=== PATIENT | male | born 1945 | race Caucasian/White ===

== ENCOUNTER 2017-06-01 19:11 | Observation (INO) | payer MEDICARE, OTHER ==
[2017-06-01] MEDS ORDERED: Albuterol/Ipratropium 3.0-0.5 MG/3 ML Neb Soln ONE (19:20)
[2017-06-01] MEDS ORDERED: Sodium Chloride 0.9% 10 ML Syringe FLUSH PRN (19:20)
[2017-06-01] MEDS ORDERED: Sodium Chloride 0.9% 2.5 ML Syringe FLUSH PRN (19:20)
--- NOTE | 2017-06-01 19:29 | EDM.PDOC ---
ED HPI GENERAL MEDICAL PROBLEM - General Chief Complaint: Respiratory Problem Stated Complaint: COPD Time Seen by Provider: 06/01/17 19:20 Source of Information: Reports: Patient, EMS, RN - History of Present Illness INITIAL COMMENTS - FREE TEXT/NARRATIVE: He presented by EMS with recent cough and dyspnea that acutely worsened today. He has a prior history of COPD and has been intubated. He has had a tracheostomy in the past - Related Data Allergies Allergy/AdvReac Type Severity Reaction Status Date / Time lorazepam [From Ativan] Allergy Other Verified 06/01/17 19:34 sulfur dioxide Allergy Hives Verified 06/01/17 19:34 Home Meds: Home Meds Albuterol [Ventolin HFA] 2 puff INH ASDIRECTED PRN 06/01/17 [History] Clotrimazole [Clotrimazole 1%] 0 mg TOP ASDIRECTED PRN 06/01/17 [History] DULoxetine [Cymbalta] 60 mg PO DAILY 06/01/17 [History] Diltiazem [Cardizem CD] 240 mg PO DAILY 06/01/17 [History] Furosemide 20 mg PO DAILY 06/01/17 [History] Gabapentin [Neurontin] 800 mg PO BID 06/01/17 [History] Hydrocodone/Acetaminophen [Hydrocodon-Acetaminophn 10-325] 10 - 325 mg PO ASDIRECTED PRN 06/01/17 [History] Metoprolol Succinate [Toprol XL] 25 mg PO DAILY 06/01/17 [History] Omeprazole 20 mg PO DAILY 06/01/17 [History] Rivaroxaban [Xarelto] 20 mg PO DAILY 06/01/17 [History] Umeclidinium Brm/Vilanterol Tr [Anoro Ellipta 62.5-25 MCG] 1 puff INH DAILY [History] Past Medical History Cardiovascular History: Reports: Afib. Denies: Heart Failure, Heart Murmur, Hypertension, HI Respiratory History: Reports: COPD Gastrointestinal History: Denies: Cirrhosis Genitourinary History: Denies: Chronic Renal Insuffiency Neurological History: Denies: CVA Endocrine/Metabolic History: Denies: Diabetes, Type I, Diabetes, Type II Hematologic History: Reports: Anticoagulation Therapy Immunologic History: Denies: Solid Organ Transplant Oncologic (Cancer) History: Reports: None Social & Family History - Tobacco Use Smoking Status *Q: Former Smoker Tobacco Use Comment: He quit smoking about six years ago - Alcohol Use Alcohol Use Comment: he had two drinks today . He states that he does not drink everyday but that he drinks socially. ED ROS GENERAL - Review of Systems Review Of Systems: See Below Constitutional: Denies: Fever Respiratory: Reports: Shortness of Breath, Wheezing, Cough Cardiovascular: Denies: Chest Pain GI/Abdominal: Denies: Abdominal Pain, Black Stool, Bloody Stool, Hematemesis, Hematochezia : Denies: Dysuria, Hematuria ED EXAM, GENERAL - Physical Exam Exam: See Below General Appearance: Alert, Mild Distress Throat/Mouth: Other (prior tacheostomy scar noted) Respiratory/Chest: Decreased Breath Sounds, Accessory Muscle Use, Retractions Cardiovascular: Regular Rate, Rhythm GI/Abdominal: Soft, Non-Tender, Other (prior surgical scars ; large area of ventral hernia noted) Rectal (Males) Exam: Deferred Extremities: No: Pedal Edema Neurological: Alert Course - Vital Signs Last Recorded V/S: Last Vital Signs Temp 97.0 F 06/01/17 20:00 Pulse 61 06/01/17 20:00 Resp 20 06/01/17 20:00 BP 112/70 06/01/17 20:00 Pulse Ox 97 06/01/17 20:00 - Orders/Labs/Meds Orders: Active Orders 24 hr Category Date Time Status RT Aerosol Therapy [RC] ASDIRECTED Care 06/01/17 19:21 Active Chest 1V Frontal [CR] Stat Exams 06/01/17 19:20 Taken Albuterol/Ipratropium [DuoNeb 3.0-0.5 MG/3 ML] Med 06/01/17 19:30 Active 3 ml NEB Q1H Azithromycin [Zithromax] 500 mg Med 06/01/17 19:30 Active Sodium Chloride 0.9% [Normal Saline] 250 ml IV Q24H Piperacillin/Tazobactam [Piperacil-Tazobact] 3.375 gm Med 06/01/17 19:30 Active Sodium Chloride 0.9% [Normal Saline] 50 ml IV Q6H Sodium Chloride 0.9% [Saline Flush] Med 06/01/17 19:20 Active 10 ml FLUSH ASDIRECTED PRN Sodium Chloride 0.9% [Saline Flush] Med 06/01/17 19:20 Active 2.5 ml FLUSH ASDIRECTED PRN Vancomycin Pharmacy to Dose [Pharmacy to Dose - Med 06/01/17 19:30 Pending Vancomycin] 1 dose .XX ASDIRECTED Vancomycin [Vancocin] 1 gm Med 06/01/17 21:00 Active Sodium Chloride 0.9% [Normal Saline] 250 ml IV Q12H methylPREDNISolone Sod Succ [Solu-MEDROL] Med 06/01/17 19:30 Active 125 mg IVPUSH Q6H Saline Lock Insert [OM.PC] Urgent Oth 06/01/17 19:20 Ordered Medication Orders Albuterol/Ipratropium (Duoneb 3.0-0.5 Mg/3 Ml) 3 ml NEB Q1H [facility] Azithromycin 500 mg/ Sodium (Chloride) 250 mls @ 250 mls/hr IV Q24H [facility] Last Admin: 06/01/17 20:11 Dose: 250 mls/hr Piperacillin Sod/Tazobactam (Sod 3.375 gm/ Sodium Chloride) 50 mls @ 100 mls/ hr IV Q6H [facility] Last Admin: 06/01/17 19:39 Dose: 100 mls/hr Vancomycin HCl 1 gm/ Sodium (Chloride) 250 mls @ 166 mls/hr IV Q12H [facility] Methylprednisolone Sodium Succinate (Solu-Medrol) 125 mg IVPUSH Q6H [facility] Last Admin: 06/01/17 19:38 Dose: 125 mg Sodium Chloride (Saline Flush) 10 ml FLUSH ASDIRECTED PRN PRN Reason: Keep Vein Open Sodium Chloride (Saline Flush) 2.5 ml FLUSH ASDIRECTED PRN PRN Reason: Keep Vein Open Vancomycin HCl (Pharmacy To Dose - Vancomycin) 1 dose .XX ASDIRECTED [facility] Labs: Laboratory Tests 06/01/17 06/01/17 06/01/17 Range/Units 19:25 19:25 20:23 WBC 9.75 (4.0-11.0) K/uL RBC 4.71 (4.50-5.90) M/uL Hgb 13.6 (13.0-17.0) g/dL Hct 41.4 (38.0-50.0) % MCV 87.9 (80.0-98.0) fL MCH 28.9 (27.0-32.0) pg MCHC 32.9 (31.0-37.0) g/dL RDW Std Deviation 44.3 (28.0-62.0) fl RDW Coeff of Sally 14 (11.0-15.0) % Plt Count 342 (150-400) K/uL MPV 9.80 (7.40-12.00) fL Neut % (Auto) 60.4 (48.0-80.0) % Lymph % (Auto) 29.6 (16.0-40.0) % Butts % (Auto) 8.0 (0.0-15.0) % Eos % (Auto) 1.6 (0.0-7.0) % Baso % (Auto) 0.4 (0.0-1.5) % Neut # (Auto) 5.9 H (1.4-5.7) K/uL Lymph # (Auto) 2.9 H (0.6-2.4) K/uL Butts # (Auto) 0.8 (0.0-0.8) K/uL Eos # (Auto) 0.2 (0.0-0.7) K/uL Baso # (Auto) 0.0 (0.0-0.1) K/uL Nucleated RBC % 0.0 /100WBC Nucleated RBCs # 0 K/uL ABG pH 7.344 L (7.35-7.45) ABG pCO2 46 H (35-45) mmHG ABG pO2 103 H (75-100) mmHG ABG HCO3 25 (22-26) mEq/L ABG Total CO2 23.1 ABG Base Excess -0.9 (-2.0-2.0) Sodium 138 (136-146) mmol/L Potassium 4.5 (3.5-5.1) mmol/L Chloride 102 (98-110) mmol/L Carbon Dioxide 19 L (21-31) mmol/L BUN 28 H (6.0-23.0) mg/dL Creatinine 1.1 (0.6-1.5) mg/dL Est Cr Clr Drug Dosing 65.44 mL/min Estimated GFR (MDRD) > 60.0 ml/min Glucose 128 H (60-110) mg/dL Calcium 9.8 (8.8-10.8) mg/dL Magnesium 1.7 (1.5-2.3) mEq/L Total Bilirubin 0.2 (0.1-1.5) mg/dL AST 18 (5-40) IU/L ALT 24 (8-54) IU/L Alkaline Phosphatase 117 (40-150) Total Protein 7.5 (6.0-8.0) g/dL Albumin 3.9 (3.4-4.8) g/dL Globulin 3.6 H (2.0-3.5) g/dL Albumin/Globulin Ratio 1.1 L (1.3-2.8) Meds: Medications Generic Name Dose Route Start Last Admin Trade Name Pardeep PRN Reason Stop Dose Admin Albuterol/Ipratropium 3 ml 06/01/17 19:30 Duoneb 3.0-0.5 Mg/3 Ml NEB Q1H [facility] Azithromycin 500 mg/ Sodium 250 mls @ 250 mls/hr 06/01/17 19:30 06/01/17 20: 11 Chloride IV 250 mls/hr Q24H [facility] Administration Piperacillin Sod/Tazobactam 50 mls @ 100 mls/hr 06/01/17 19:30 06/01/17 19:39 Sod 3.375 gm/ Sodium Chloride IV 100 mls/hr Q6H [facility] Administration Vancomycin HCl 1 gm/ Sodium 250 mls @ 166 mls/hr 06/01/17 21:00 Chloride IV Q12H [facility] Methylprednisolone Sodium Succinate 125 mg 06/01/17 19:30 06/01/17 19:38 Solu-Medrol IVPUSH 125 mg Q6H [facility] Administration Sodium Chloride 10 ml 06/01/17 19:20 Saline Flush FLUSH ASDIRECTED PRN Keep Vein Open Sodium Chloride 2.5 ml 06/01/17 19:20 Saline Flush FLUSH ASDIRECTED PRN Keep Vein Open Vancomycin HCl 1 dose 06/01/17 19:30 Pharmacy To Dose - Vancomycin .XX ASDIRECTED [facility] Discontinued Medications Generic Name Dose Route Start Last Admin Trade Name Pardeep PRN Reason Stop Dose Admin Albuterol/Ipratropium Confirm 06/01/17 19:20 06/01/17 19:26 Duoneb 3.0-0.5 Mg/3 Ml Administered 06/01/17 19:21 3 ml Dose Administration 3 ml .ROUTE .STK-MED ONE - Re-Assessments/Exams Free Text/Narrative Re-Assessment/Exam: 06/01/17 21:05 he appears much improved . He thought he might be able to go home as he feels so much better. I advised hospitalization as his oxygen saturation was initially 70% in the ambulance. He was in severe respiratory distress initially. I spoke with him and with his .They agree for him to stay in the hospital Departure - Departure Time of Disposition: 21:11 Disposition: Admitted As Inpatient 68 Condition: Fair Clinical Impression: COPD exacerbation - Discharge Information Referrals: PCP,None [Primary Care Provider] - Forms: ED Department Discharge - My Orders Last 24 Hours: My Active Orders 06/01/17 19:20 Chest 1V Frontal [CR] Stat Sodium Chloride 0.9% [Saline Flush] 10 ml FLUSH ASDIRECTED PRN Sodium Chloride 0.9% [Saline Flush] 2.5 ml FLUSH ASDIRECTED PRN Saline Lock Insert [OM.PC] Urgent 06/01/17 19:21 RT Aerosol Therapy [RC] ASDIRECTED 06/01/17 19:30 Albuterol/Ipratropium [DuoNeb 3.0-0.5 MG/3 ML] 3 ml NEB Q1H Azithromycin [Zithromax] 500 mg Sodium Chloride 0.9% [Normal Saline] 250 ml IV Q24H Piperacillin/Tazobactam [Piperacil-Tazobact] 3.375 gm Sodium Chloride 0.9% [ Normal Saline] 50 ml IV Q6H Vancomycin Pharmacy to Dose [Pharmacy to Dose - Vancomycin] 1 dose .XX ASDIRECTED methylPREDNISolone Sod Succ [Solu-MEDROL] 125 mg IVPUSH Q6H 06/01/17 21:00 Vancomycin [Vancocin] 1 gm Sodium Chloride 0.9% [Normal Saline] 250 ml IV Q12H - Assessment/Plan Last 24 Hours: My Active Orders 06/01/17 19:20 Chest 1V Frontal [CR] Stat Sodium Chloride 0.9% [Saline Flush] 10 ml FLUSH ASDIRECTED PRN Sodium Chloride 0.9% [Saline Flush] 2.5 ml FLUSH ASDIRECTED PRN Saline Lock Insert [OM.PC] Urgent 06/01/17 19:21 RT Aerosol Therapy [RC] ASDIRECTED 06/01/17 19:30 Albuterol/Ipratropium [DuoNeb 3.0-0.5 MG/3 ML] 3 ml NEB Q1H Azithromycin [Zithromax] 500 mg Sodium Chloride 0.9% [Normal Saline] 250 ml IV Q24H Piperacillin/Tazobactam [Piperacil-Tazobact] 3.375 gm Sodium Chloride 0.9% [ Normal Saline] 50 ml IV Q6H Vancomycin Pharmacy to Dose [Pharmacy to Dose - Vancomycin] 1 dose .XX ASDIRECTED methylPREDNISolone Sod Succ [Solu-MEDROL] 125 mg IVPUSH Q6H 06/01/17 21:00 Vancomycin [Vancocin] 1 gm Sodium Chloride 0.9% [Normal Saline] 250 ml IV Q12H
[2017-06-01] MEDS ORDERED: Azithromycin 500 MG in Sodium Chloride 0.9% 250 ML IV SCH (19:30)
[2017-06-01] MEDS: methylPREDNISolone Sodium Succinate 125 MG/2 ML SDV IVPUSH SCH (19:38)
[2017-06-01] MEDS: Piperacillin/Tazobactam 3.375 GM in Sodium Chloride 0.9% 50 ML IV SCH (19:39)
[2017-06-01 19:53] LABS: CHLORIDE,CL 102 mmol/L (98-110); SODIUM,NA 138 mmol/L (136-146)
[2017-06-01] MEDS ORDERED: Acetaminophen 325 MG Tab PO PRN (21:15)
[2017-06-01] MEDS ORDERED: Temazepam 15 MG Cap PO PRN (21:15)
[2017-06-01] MEDS ORDERED: Levalbuterol HCl 1.25 MG/0.5 ML Neb NEB PRN (21:15)
[2017-06-01] MEDS ORDERED: cefTRIAXone 1,000 MG VIAL IVPUSH SCH (21:15)
[2017-06-01] MEDS ORDERED: HYDROCODONE PO PRN (21:20)
[2017-06-01] MEDS ORDERED: ACETAMINOPHEN PO PRN (21:20)
[2017-06-01] MEDS ORDERED: cefTRIAXone 1 GM in Premix Bag 1 BAG IV ONE (21:36)
[2017-06-01] MEDS: Albuterol/Ipratropium 3.0-0.5 MG/3 ML Neb Soln NEB SCH (21:58)
[2017-06-02] MEDS ORDERED: methylPREDNISolone Sodium Succinate 125 MG/2 ML SDV IVPUSH SCH (02:00)
[2017-06-02] MEDS: Piperacillin/Tazobactam 3.375 GM in Sodium Chloride 0.9% 50 ML IV SCH ×2 (02:13→06:41)
[2017-06-02] MEDS: methylPREDNISolone Sodium Succinate 125 MG/2 ML SDV IVPUSH SCH ×2 (02:14→06:41)
[2017-06-02] MEDS: Albuterol/Ipratropium 3.0-0.5 MG/3 ML Neb Soln NEB SCH ×4 (02:14→09:32)
[2017-06-02 05:50] LABS: CHLORIDE,CL 103 mmol/L (98-110); SODIUM,NA 137 mmol/L (136-146)
[2017-06-02 08:08] VITALS: BP 149/67
[2017-06-02] MEDS ORDERED: Acetaminophen/HYDROcodone 325-10 MG Tab PO PRN (08:30)
[2017-06-02] MEDS ORDERED: Metoprolol Succinate 25 MG Tab.ER PO SCH (09:00)
[2017-06-02] MEDS ORDERED: Furosemide 20 MG Tab PO SCH (09:00)
[2017-06-02] MEDS ORDERED: Gabapentin 800 MG Tab PO SCH (09:00)
[2017-06-02] MEDS ORDERED: Rivaroxaban 10 MG Tab PO SCH (09:00)
[2017-06-02] MEDS ORDERED: Omeprazole 20 MG Cap.CR PO SCH (09:00)
[2017-06-02] MEDS ORDERED: DULoxetine 60 MG Cap PO SCH (09:00)
[2017-06-02] MEDS ORDERED: Diltiazem 120 MG Cap.CD PO SCH (09:00)
--- NOTE | 2017-06-02 11:44 | PCM.HP ---
H&P History of Present Illness - General Admit Problem/Dx: Admission Diagnosis/Problem Admission Diagnosis/Problem COPD, Severe chronic obstructive pulmonary disease - History of Present Illness Initial Comments - Free Text/Narative: 71 yo male with pmh of end stage COPD who earlier this year had prolonged hospitalization with 5 weeks of intubation due to respiratory failure and complications involving a peg tub. He presents with sudden onset of shortness of breath while watching a game on television. He presented to the ED with respiratory distress and satting 70% on RA. He normally only uses supplemental oxygen at night. He received duonebs and solumedrol in the ED with quick improvement in symptoms. He was monitored overnight and this morning feels well and ready to go home. This is his second exacerbation this month. He is currently using a Anoro and albuterol neb at home prior to admission. - Related Data Allergies/Adverse Reactions: Allergies Allergy/AdvReac Type Severity Reaction Status Date / Time lorazepam [From Ativan] Allergy Other Verified 06/01/17 19:34 sulfur dioxide Allergy Hives Verified 06/01/17 19:34 Home Medications: Home Meds Albuterol [Ventolin HFA] 2 puff INH ASDIRECTED PRN 06/01/17 [History] Clotrimazole [Clotrimazole 1%] 0 mg TOP ASDIRECTED PRN 06/01/17 [History] DULoxetine [Cymbalta] 60 mg PO DAILY 06/01/17 [History] Diltiazem [Cardizem CD] 240 mg PO DAILY 06/01/17 [History] Furosemide 20 mg PO DAILY 06/01/17 [History] Gabapentin [Neurontin] 800 mg PO BID 06/01/17 [History] Hydrocodone/Acetaminophen [Hydrocodon-Acetaminophn 10-325] 10 - 325 mg PO ASDIRECTED PRN 06/01/17 [History] Metoprolol Succinate [Toprol XL] 25 mg PO DAILY 06/01/17 [History] Omeprazole 20 mg PO DAILY 06/01/17 [History] Rivaroxaban [Xarelto] 20 mg PO DAILY 06/01/17 [History] Umeclidinium Brm/Vilanterol Tr [Anoro Ellipta 62.5-25 MCG] 1 puff INH DAILY [History] Azithromycin [IJD: Azithromycin] 250 mg PO DAILY #4 tab 06/02/17 [Rx] Mometasone Furoate [Asmanex] 2 puff IH Q12H #1 [email or web address] 06/02/17 [Rx] predniSONE [Prednisone] 50 mg PO DAILY #4 tablet 06/02/17 [Rx] Past Medical History Cardiovascular History: Reports: Afib Respiratory History: Reports: COPD Other Respiratory History: respiratory failure; endotracheal intubation Gastrointestinal History: Reports: Other (See Below) Other Gastrointestinal History: Bowel perforation Genitourinary History: Reports: None Musculoskeletal History: Reports: Back Pain, Chronic Neurological History: Denies: CVA Endocrine/Metabolic History: Denies: Diabetes, Type I, Diabetes, Type II Hematologic History: Reports: Anticoagulation Therapy Immunologic History: Reports: None Oncologic (Cancer) History: Reports: None - Infectious Disease History Infectious Disease History: Reports: Chicken Pox, Measles, Mumps - Past Surgical History Head Surgeries/Procedures: Reports: None Cardiovascular Surgical History: Reports: None Respiratory Surgical History: Reports: None GI Surgical History: Reports: Colostomy Musculoskeletal Surgical History: Reports: None Social & Family History - Family History Family Medical History: Noncontributory - Tobacco Use Smoking Status *Q: Former Smoker Used Tobacco, but Quit: Yes Month Tobacco Last Used: 8 years ago Tobacco Use Comment: He quit smoking about six years ago - Caffeine Use Caffeine Use: Reports: Coffee Caffeine Use Comment: 3cups/day - Recreational Drug Use Recreational Drug Use: No H&P Review of Systems - Review of Systems: Review Of Systems: ROS reveals no pertinent complaints other than HPI. Exam - Exam Exam: See Below - Vital Signs Vital Signs: Last Vital Signs Temp 36.9 C 06/02/17 08:00 Pulse 89 06/02/17 09:04 Resp 18 06/02/17 08:00 BP 149/67 H 06/02/17 09:04 Pulse Ox 96 06/02/17 08:00 Weight: 76.612 kg - Exam General: Alert, Oriented, 4 HEENT: Mucosa Moist & Grandy Neck: Supple Lungs: Clear to Auscultation, Normal Respiratory Effort Cardiovascular: Regular Rate, Regular Rhythm GI/Abdominal Exam: Normal Bowel Sounds, Non-Tender, No Distention Extremities: Normal Inspection, Non-Tender, No Pedal Edema Skin: Warm, Dry, Intact - Patient Data Lab Results Last 24 hrs: Laboratory Results - last 24 hr 06/02/17 06/02/17 Range/Units 05:15 05:15 WBC 6.08 (4.0-11.0) K/uL RBC 4.45 L (4.50-5.90) M/uL Hgb 12.6 L (13.0-17.0) g/dL Hct 38.3 (38.0-50.0) % MCV 86.1 (80.0-98.0) fL MCH 28.3 (27.0-32.0) pg MCHC 32.9 (31.0-37.0) g/dL RDW Std Deviation 43.4 (28.0-62.0) fl RDW Coeff of Sally 14 (11.0-15.0) % Plt Count 299 (150-400) K/uL MPV 9.90 (7.40-12.00) fL Neut % (Auto) 94.2 H (48.0-80.0) % Lymph % (Auto) 5.4 L (16.0-40.0) % Schleicher % (Auto) 0.2 (0.0-15.0) % Eos % (Auto) 0.0 (0.0-7.0) % Baso % (Auto) 0.2 (0.0-1.5) % Neut # (Auto) 5.7 (1.4-5.7) K/uL Lymph # (Auto) 0.3 L (0.6-2.4) K/uL Schleicher # (Auto) 0.0 (0.0-0.8) K/uL Eos # (Auto) 0.0 (0.0-0.7) K/uL Baso # (Auto) 0.0 (0.0-0.1) K/uL Nucleated RBC % 0.0 /100WBC Nucleated RBCs # 0 K/uL Sodium 137 (136-146) mmol/L Potassium 4.5 (3.5-5.1) mmol/L Chloride 103 (98-110) mmol/L Carbon Dioxide 23 (21-31) mmol/L BUN 24 H (6.0-23.0) mg/dL Creatinine 1.0 (0.6-1.5) mg/dL Est Cr Clr Drug Dosing 72.16 mL/min Estimated GFR (MDRD) > 60.0 ml/min Glucose 200 H (60-110) mg/dL Calcium 9.5 (8.8-10.8) mg/dL Result Diagrams: 06/02/17 05:15 06/02/17 05:15 *Q Meaningful Use (ADM) - VTE *Q VTE Criteria *Q: - Stroke *Q Stroke Criteria *Q: - AMI *Q AMI Criteria *Q: Problem List Initiated/Reviewed/Updated: Yes Orders Last 24hrs: Active Orders 24 hr Category Date Time Status Ready for Discharge [RC] PER UNIT ROUTINE Care 06/02/17 11:39 Ordered Acetaminophen/HYDROcodone [Hana 325-10 MG] Med 06/02/17 08:30 Active 1 tab PO Q4H PRN Albuterol/Ipratropium [DuoNeb 3.0-0.5 MG/3 ML] Med 06/01/17 21:22 Active 3 ml NEB Q4H DULoxetine [Cymbalta] Med 06/02/17 09:00 Active 60 mg PO DAILY Diltiazem [Cardizem CD] Med 06/02/17 09:00 Active 240 mg PO DAILY Furosemide [Lasix] Med 06/02/17 09:00 Active 20 mg PO DAILY Gabapentin [Neurontin] Med 06/02/17 09:00 Active 800 mg PO BID Metoprolol Succinate [Toprol XL] Med 06/02/17 09:00 Active 25 mg PO DAILY Omeprazole Med 06/02/17 09:00 Active 20 mg PO DAILY Rivaroxaban [Xarelto] Med 06/02/17 09:00 Active 20 mg PO DAILY Medication Orders Acetaminophen (Tylenol) 650 mg PO Q4H PRN PRN Reason: Pain (Mild 1-3)/fever Hydrocodone Bitart/Acetaminophen (Hana 325-10 Mg) 1 tab PO Q4H PRN PRN Reason: Pain Albuterol/Ipratropium (Duoneb 3.0-0.5 Mg/3 Ml) 3 ml NEB Q4H [facility] Last Admin: 06/02/17 09:32 Dose: 3 ml Admin: 06/02/17 05:59 Dose: 3 ml Admin: 06/02/17 02:14 Dose: 3 ml Admin: 06/01/17 21:58 Dose: 3 ml Diltiazem HCl (Cardizem Cd) 240 mg PO DAILY [facility] Last Admin: 06/02/17 09:04 Dose: 240 mg Duloxetine HCl (Cymbalta) 60 mg PO DAILY [facility] Last Admin: 06/02/17 08:07 Dose: 60 mg Furosemide (Lasix) 20 mg PO DAILY [facility] Last Admin: 06/02/17 08:07 Dose: 20 mg Gabapentin (Neurontin) 800 mg PO BID [facility] Last Admin: 06/02/17 09:05 Dose: Not Given Piperacillin Sod/Tazobactam (Sod 3.375 gm/ Sodium Chloride) 50 mls @ 100 mls/ hr IV Q6H [facility] Last Admin: 06/02/17 06:41 Dose: 100 mls/hr Infusion: 06/02/17 02:43 Dose: 100 mls/hr Admin: 06/02/17 02:13 Dose: 100 mls/hr Infusion: 06/01/17 20:09 Dose: 100 mls/hr Admin: 06/01/17 19:39 Dose: 100 mls/hr Azithromycin 500 mg/ Sodium (Chloride) 250 mls @ 250 mls/hr IV Q24H [facility] Levalbuterol HCl (Xopenex) 1.25 mg NEB Q3H PRN PRN Reason: Wheezing Methylprednisolone Sodium Succinate (Solu-Medrol) 125 mg IVPUSH Q6H [facility] Last Admin: 06/02/17 06:41 Dose: 125 mg Admin: 06/02/17 02:14 Dose: 125 mg Admin: 06/01/17 19:38 Dose: 125 mg Metoprolol Succinate (Toprol Xl) 25 mg PO DAILY [facility] Last Admin: 06/02/17 08:07 Dose: 25 mg Omeprazole (Omeprazole) 20 mg PO DAILY [facility] Last Admin: 06/02/17 08:07 Dose: 20 mg Rivaroxaban (Xarelto) 20 mg PO DAILY [facility] Last Admin: 06/02/17 09:48 Dose: 20 mg Sodium Chloride (Saline Flush) 10 ml FLUSH ASDIRECTED PRN PRN Reason: Keep Vein Open Sodium Chloride (Saline Flush) 2.5 ml FLUSH ASDIRECTED PRN PRN Reason: Keep Vein Open Temazepam (Restoril) 15 mg PO BEDTIME PRN PRN Reason: Sleep Assessment/Plan Comment:: 71 yo male admitted for COPD exacerbation. He was observed overnight and is requesting discharge home. Due to the frequency of his exacerbations will add an inhaled cortical steroid to his inhalers. Will also prescribe four days of Azithromycin 250mg daily and Prednisone 50mg daily.
[2017-06-02] MEDS ORDERED: Azithromycin 500 MG in Sodium Chloride 0.9% 250 ML IV SCH (22:00)
--- NOTE | 2017-06-04 16:16 | CR ---
EXAM DATE: 06/01/17 PATIENT'S AGE: 71 Patient: LENNY KYLE Facility: [place], [place] Site . Site : [id number] Study: XRay Chest [id number] 7:32:15 PM Ordering Physician: Jeanine Fonseca Final Report: HISTORY: Cough. FINDINGS: AP portable chest radiograph demonstrates EKG leads overlying the thorax. There is hyperaeration with eventration of diaphragm. The cardiac silhouette is normal. There is calcification aortic knob. No lobar consolidation or pleural effusion is seen. Linear scarring is seen in the right upper thorax. IMPRESSION: 1. Hyperaeration. 2. Scarring in the right upper thorax. 3. No acute cardiopulmonary disease or infiltrates. Dictated by Tina Stapleton MD @ 06/01/2017 8:03:36 PM Dictated by: Tina Stapleton MD @ 06/01/2017 20:03:40 (Electronic Signature) Report Signed by Proxy. [email or web address]
== END 2017-06-02 12:30 | disposition home or self-care (01) ==
LOC: MW.ED 19:11 → MW.MS 21:15 → UNDOADMOB 21:17
PROVIDERS: ADMIT Internal Medicine; ATTEND Internal Medicine
DX: J44.1 Chronic obstructive pulmonary disease with (acute) exacerbation (principal); Z88.2 Allergy status to sulfonamides; Z88.8 Allergy status to other drugs, medicaments and biological substances; Z79.899 Other long term (current) drug therapy; Z93.3 Colostomy status; Z87.891 Personal history of nicotine dependence; Z79.01 Long term (current) use of anticoagulants
CPT/HCPCS: 36415; 36600; 71010; 80048; 80053; 82803; 83735; 85025; 87804; 94664; 96365; 96367; 96375; 99285; A9270; J0456; J0696; J2543; J2930; J7050; 96366; 96376; 99283; G0378